=== PATIENT | female | born 1995 | race African-American/Black ===

== ENCOUNTER 2017-01-18 15:36 | Inpatient (IN) ==
[2017-01-18] MEDS ORDERED: LACTATED RINGERS 500 ML IV ONE (15:54)
[2017-01-18] MEDS ORDERED: CITRIC ACID/SODIUM CITRATE 30 ML UDCUP PO ONE (16:32)
[2017-01-18] MEDS ORDERED: ceFAZolin 2,000 MG in PREMIX 1 EACH IV ONE (16:32)
[2017-01-18] MEDS ORDERED: FAMOTIDINE 20 MG/2 ML VIAL IV ONE (16:32)
[2017-01-18 16:45] LABS: Apearance,Urine CLOUDY (Clear); Bacteria,Urine Moderate /HPF (Few); Bilirubin,Urine Negative (Negative); Blood, Urine Large mg/dL (Negative); Glucose,Urine (UA) Negative (Negative); Ketones,Urine Negative (Negative); Nitrite,Urine Negative (Negative); Protein,Urine >=500 MG/DL; RBC,Urine 448 /HPF (0-4); Squamous Epithelial Cell,Urine Occasional /HPF (0-10); Urine Specific Gravity 1.012 (1.001-1.035); Urine Urobilinogen < 2.0 EU/DL (0.2-1.0); WBC,Urine 18 /HPF (0-6)
[2017-01-18 16:46] LABS: Urine Color Yellow (Yellow)
[2017-01-18] MEDS: hydrALAZINE 20 MG/1 ML VIAL IV SCH (16:59)
[2017-01-18 17:00] LABS: Basophils # 0.1 10*3/uL (0.0-0.2); Basophils % 0.6 % (0.0-0.8); Eosinophils # 0.1 10*3/uL (0.0-0.87); Eosinophils % 0.5 % (0.00-10.9); Hematocrit 35.8 VOL% (35.7-47.0); Hemoglobin 12.5 GM/DL (12.0-16.0); Immature Granulocytes % 4.5 %; Immature Granulocytes Absolute 0.42 #; Lymphocytes # 2.9 10*3/uL (1.4-4.0); Lymphocytes % 31.2 % (21.3-54.2); Mean Corpuscular HGB Conc 34.9 GM/DL (32-36); Mean Corpuscular Hemoglobin 27 PG (27-34); Mean Corpuscular Volume 78.5 FL (87-102); Mean Platelet Volume 10.5 FL (9.6-12.0); Monocytes % 10.6 % (1.7-12.7); NRBC # 0.09 10*3/uL; Neutrophils # 4.9 10*3/uL (1.4-7.4); Neutrophils % 52.6 % (38.7-73.9); Platelet Count 186 T/CUMM (130-400); Red Blood Count 4.56 MC/CUMM (3.8-5.5); Red Cell Distribution Width 13.8 % (9.3-17.3); White Blood Count 9.3 T/CUMM (4-12)
[2017-01-18] MEDS ORDERED: BETAMETH SODIUM PHOS/ACETATE 30 MG/5 ML VIAL IM SCH (17:00)
[2017-01-18] MEDS ORDERED: OXYTOCIN/LR 20 UNIT/1,000 ML BAG IV ONE ×3 (17:01→18:50)
[2017-01-18] MEDS: LABETALOL 200 MG TABLET PO SCH ×2 (17:01→21:27)
[2017-01-18] MEDS ORDERED: LACTATED RINGERS 1,000 ML IV ONE (17:04)
[2017-01-18 17:14] LABS: INR 0.9; PT Patient Result 9.1 SECS; Partial Thromboplastin Time 26.6 SECS (0-40)
[2017-01-18 17:29] LABS: Alanine Aminotransferase 16 U/L (13-56); Alkaline Phosphatase 119 U/L (45-117); Aspartate Amino Transferase 26 U/L (0-37); Bilirubin,Total < 0.39 MG/DL (0.2-1.0); Blood Urea Nitrogen 14 MG/DL (7-18); Glucose 82 MG/DL (74-106); Osmolality,Calculated 282.1 MOS/KG (273-304); Potassium 3.4 MMOL/L (3.5-5.1); Sodium 142 MMOL/L (136-145); Total Protein 5.5 G/DL (6.4-8.3); Uric Acid 7.9 MG/DL (2.6-6.0)
--- NOTE | 2017-01-18 17:32 | OB/GYN History & Physical ---
History of Present Illness Chief complaint: 32 weeks severe PIH remote from delivery late decelerations History of present illness: Ms. Hinton is a 21 year old female 1 para 0 seen in the office today. She has a history of A1 gestational diabetes. She had all values out on a 3 hour GTT was placed on insulin but had a adverse reaction to it was constantly placed on diet by the diabetic teaching and had good response with diet control.; However patient has not been checking her blood sugars as recommended and has not followed up with diabetic teaching Patient had an NST today in the office which showed spontaneous decelerations adequate biophysical profile done which showed ADELE of 8. Overall the BPP was reassuring, however the patient his elevated blood pressures of 200/130 there is sustained. She was sent to labor department for evaluation. She continues to have elevated blood pressures and overall has diminished long-term variability with recurrent decelerations. Case was discussed with Dr. Drew and Dr. 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 - Constitutional Vitals: Vital Signs Temp Pulse Resp BP 01/18/17 16:00 98.1 F 63 18 203/117 General appearance: morbidly obese - Head Head exam: Present: normal inspection, normocephalic, atraumatic - Neck Neck exam: Present: normal inspection - Respiratory Respiratory exam: Present: clear to auscultation bilaterally - Breast Breasts: as per HPI Menstruation: as per HPI - Cardiovascular Cardiovascular exam: Present: regular rate and rhythm - GI/Abdominal GI/Abdominal exam: Present: normal bowel sounds - Extremities Exam Extremities exam: Present: normal inspection, normal capillary refill - Back Exam Back exam: Present: normal inspection - Neurological Exam Neurological exam: Present: alert, oriented X3 - Psychiatric Psychiatric exam: Present: normal affect, normal mood - Skin Skin exam: Present: normal color, warm Assessment and Plan (1) with 32 completed weeks gestation Status: Acute Current Visit: Yes (2) PIH ( induced hypertension) Status: Acute Current Visit: Yes (3) heart rate decelerations affecting management of mother Status: Acute Current Visit: Yes (4) Remote from delivery Status: Acute Current Visit: Yes Results - Labs CBC & BMP: 01/18/17 16:57
[2017-01-18 17:56] LABS: Barbiturates Screen,Urine Negative (Negative); Cannabinoid Screen,Urine Negative (Negative); Opiate Screen,Urine Negative (Negative); Phencyclidine Screen,Urine Negative (Negative)
[2017-01-18 17:57] LABS: Benzodiazepines Screen,Urine Negative (Negative)
[2017-01-18] MEDS ORDERED: oxyCODONE/ACETAMINOPHEN 5-325 MG TABLET PO PRN (18:50)
[2017-01-18] MEDS ORDERED: BENZOCAINE 20%/MENTHOL 0.5% SPRAY 56 GM CAN TOP PRN (18:50)
[2017-01-18] MEDS ORDERED: DIPH/TET/ACEL PERT BOOSTER VACCINE 0.5 ML VIAL IM ONE (18:50)
[2017-01-18] MEDS ORDERED: LANOLIN 50% CREAM 0.3 OZ TUBE TOP PRN (18:50)
[2017-01-18] MEDS ORDERED: HYDROCORTISONE 2.5% RECTAL CREAM 30 GM TUBE TOP PRN (18:50)
[2017-01-18] MEDS ORDERED: WITCH HAZEL PADS 100/JAR TOP PRN (18:50)
[2017-01-18] MEDS ORDERED: MEASLES/MUMPS/RUBELLA VACCINE 0.5 ML VIAL SUBCUT ONE (18:50)
[2017-01-18] MEDS ORDERED: IBUPROFEN 800 MG TABLET PO PRN (18:50)
[2017-01-18] MEDS ORDERED: ACETAMINOPHEN 325 MG TABLET PO PRN (18:50)
[2017-01-18] MEDS ORDERED: BISACODYL 10 MG SUPP RECTAL PRN (18:50)
[2017-01-18] MEDS ORDERED: ONDANSETRON 4 MG/2 ML VIAL IV PRN (18:50)
[2017-01-18] MEDS ORDERED: RHO(D) IMMUNE GLOBULIN 300 MCG SYRINGE IM ONE (18:50)
--- NOTE | 2017-01-18 18:50 | Operative Note ---
Date of procedure: 01/18/17 Pre-op diagnosis: 32 weeks recurrent late decelerations severe PIH remote from [facility] Post-op diagnosis: same Procedure: This is Dr. Choi dictating operative note: Preoperative diagnosis intrauterine intrauterine at 32 weeks 2. Severe PIH 3. Recurrent late decelerations 4. Nonreassuring heart rate tracing 5. A1 gestational diabetic 6. Remote from delivery Postoperative diagnosis same Procedure primary low transverse section Surgeon Dr. Choi Anesthesia spinal Findings liveborn female infant unweighed Apgars pending cord pH pending Complications none Estimated blood loss [400] mL Disposition patient to recovery room in [stable] condition. Infant to NICU Operative description: After the risks benefits and alternatives were explained to the patient in detail and informed consent was obtained, the patient was taken to the operating room where she was placed in the supine position. After achieving appropriate anesthesia the abdomen was prepped and draped in the usual sterile fashion. A Nicole catheter was placed without difficulty. After the appropriate time out and after adequate anesthesia was ascertained a Pfannenstiel skin incision was made and carried down through the subcutaneous tissue down to the fascia. The fascia was nicked in the midportion and undermined and incised both laterally and cephalad using sharp dissection with the curved John scissors. 2 Corydon clamps were used to elevate the rectus fascia superiorly which was bluntly and sharply dissected away from the rectus muscle below. This was repeated inferiorly. The rectus muscles were then bluntly in the midline the peritoneum identified grasped with 2 curved hemostats and entered sharply using the curved Metzenbaum scissors. A bladder blade was then placed in the pelvis and a bladder flap was created off the lower uterine segment using sharp dissection with the Metzenbaum scissors. The bladder blade was then repositioned. A transverse incision was made across the lower uterine segment down to the amnion. Entry into the amnion revealed light meconium-stained amniotic fluid. The uterine incision was then extended laterally using bilateral finger fractionation. Upon palpation the presenting part was [vertex] which was gently elevated out of the pelvis and delivered onto the abdominal wall using appropriate fundal pressure. The infant's nose and oropharynx were bulb and DeLee suctioned and the had spontaneous cry delivery. The cord was doubly clamped and cut and the was handed over to the team for care. Cord blood was obtained. The placenta was delivered manually and IV Pitocin antibiotics and Zofran were begun. The uterus was then exteriorized and placed in a wet laparotomy sponge. 2 fingers wrapped around a wet laparotomy sponge were used to remove all residual membranes from the uterine cavity. The uterus was then closed in 2 layers. The first layer of myometrium was closed with #1 Monocryl suture in an inner locking fashion beginning at both angles and overlapping slightly in the midline. The second layer of myometrium was closed with #1 Monocryl suture in a running imbricating stitch beginning at the right angle and continuing the length of the uterine incision. Hemostasis was noted to be excellent. The posterior cul-de-sac was then irrigated and cleansed with a wet laparotomy sponge and the uterus was placed back in the abdominal cavity. Both pericolic gutters were then irrigated and cleansed with a wet lap sponge. The uterine incision was then re-irrigated and again noted to be hemostatic. All counts were noted to be correct. The subcutaneous tissue was then closed using 3-0 Vicryl suture in a running fashion. The subfascial area was made hemostatic using electrocautery and closed with #1 PDS suture in a running fashion beginning at both angles and overlapping slightly in the midline. The subcutaneous tissue was irrigated and made hemostatic using electrocautery and closed with 2-0 Vicryl suture in a running fashion and the skin was closed with wide skin dandre and a sterile pressure bandage was applied to the wound. All sponge needle and instrument counts were correct -3 at the end of the procedure. The patient's urine was [clear] both at the beginning in the end of the procedure. The patient was taken to the recovery room in stable condition Anesthesia: spinal Surgeon / Physician: Barron Choi Estimated blood loss: other (400) Specimens: none sent Condition: stable Disposition: floor Results - Labs CBC & BMP: 01/18/17 16:57 01/18/17 16:57 Discharge Plan - Discharge Medications No Action Ferrous Sulfate 325 mg PO DAILY - Follow Up or Referral - Forms/Instructions
[2017-01-18 19:06] LABS: Apearance,Urine Slightly Hazy (Clear); Bacteria,Urine Occasional /HPF (Few); Bilirubin,Urine Negative (Negative); Blood, Urine Moderate mg/dL (Negative); Glucose,Urine (UA) Negative (Negative); Ketones,Urine Negative (Negative); Nitrite,Urine Negative (Negative); Protein,Urine >=500 MG/DL; RBC,Urine 3 /HPF (0-4); Urine Color Yellow (Yellow); Urine Specific Gravity 1.008 (1.001-1.035); Urine Urobilinogen < 2.0 EU/DL (0.2-1.0); WBC,Urine 2 /HPF (0-6)
[2017-01-18] MEDS ORDERED: fentaNYL 100 MCG/2 ML VIAL ONE (19:06)
[2017-01-18] MEDS ORDERED: MORPHINE 10 MG/10 ML VIAL ONE (19:07)
--- NOTE | 2017-01-18 19:23 | Anesthesia Post-Op ---
Anesthesia Post OP - Post Ansesthetic Evaluation Patient seen in post op: Yes Resp: within normal limits CV: within normal limits Mental: within normal limits Temp: within normal limits [id number]: within normal limits Nausea and Vomiting: within normal limits Pain: within normal limits
[2017-01-18] MEDS ORDERED: MAGNESIUM SULF RIDER 100 ML IV ONE (20:34)
[2017-01-18] MEDS ORDERED: MAGNESIUM SULF DRIP 40 GM/1,000 ML ML IV SCH (21:00)
[2017-01-18] MEDS: DOCUSATE SODIUM 100 MG CAPSULE PO SCH (21:12)
[2017-01-19] MEDS ORDERED: HYDROmorphone 2 MG/1 ML VIAL IV ONE (00:41)
[2017-01-19] MEDS: hydrALAZINE 20 MG/1 ML VIAL IV SCH (00:58)
[2017-01-19] MEDS ORDERED: hydrALAZINE 20 MG/1 ML VIAL IV ONE (00:58)
[2017-01-19] MEDS: CLINDAMYCIN INJ 900 MG in PREMIX 1 EACH IV SCH ×2 (03:30→11:25)
[2017-01-19 03:55] LABS: Basophils % 0.2 % (0.0-0.8); Hematocrit 38.3 VOL% (35.7-47.0); Hemoglobin 13.1 GM/DL (12.0-16.0); Immature Granulocytes % 3.4 %; Immature Granulocytes Absolute 0.57 #; Lymphocytes # 1.3 10*3/uL (1.4-4.0); Lymphocytes % 7.8 % (21.3-54.2); Mean Corpuscular HGB Conc 34.2 GM/DL (32-36); Mean Corpuscular Hemoglobin 27 PG (27-34); Mean Corpuscular Volume 79.6 FL (87-102); Mean Platelet Volume 10.5 FL (9.6-12.0); Monocytes # 0.4 10*3/uL (0.11-0.8); Monocytes % 2.5 % (1.7-12.7); NRBC # 0.07 10*3/uL; Neutrophils # 14.4 10*3/uL (1.4-7.4); Neutrophils % 86.1 % (38.7-73.9); Platelet Count 181 T/CUMM (130-400); Red Blood Count 4.81 MC/CUMM (3.8-5.5); Red Cell Distribution Width 13.8 % (9.3-17.3); White Blood Count 16.7 T/CUMM (4-12)
[2017-01-19 04:22] LABS: Band Neutrophils 3 % (0-10); Lymphocytes 4 % (20-55); Metamyelocytes 1 %; Segmented Neutrophils 91 % (50-85)
[2017-01-19 04:24] LABS: Platelet Estimate Normal; Total Cells Counted 100
--- NOTE | 2017-01-19 07:24 | OB/GYN Progress Note ---
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 Her blood pressures have been somewhat labile on labetalol 200 mg twice a day. Will increase this to 200 mg 3 times a day. 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
[2017-01-19] MEDS ORDERED: ENOXAPARIN 30 MG/0.3 ML SYRINGE SUBCUT SCH (08:00)
[2017-01-19] MEDS: FERROUS SULFATE 325 MG TABLET PO SCH (09:24)
[2017-01-19] MEDS: DOCUSATE SODIUM 100 MG CAPSULE PO SCH ×2 (09:24→20:24)
[2017-01-19] MEDS: LABETALOL 200 MG TABLET PO SCH ×2 (09:25→17:29)
[2017-01-19] MEDS ORDERED: hydrALAZINE 20 MG/1 ML VIAL IV PRN (10:57)
[2017-01-19] MEDS: ENOXAPARIN 40 MG/0.4 ML SYRINGE SUBCUT SCH (11:03)
[2017-01-19] MEDS ORDERED: MAGNESIUM HYDROXIDE SUSP 30 ML UDCUP PO PRN (20:11)
[2017-01-19] MEDS ORDERED: SIMETHICONE CHEW 80 MG TABLET PO PRN (20:16)
[2017-01-19] MEDS ORDERED: ALUMINUM/MAGNES/SIMETH MAX STR 30 ML UDCUP PO PRN (20:37)
[2017-01-20] MEDS: LABETALOL 200 MG TABLET PO SCH ×3 (00:07→21:44)
[2017-01-20] MEDS: oxyCODONE/ACETAMINOPHEN 5-325 MG TABLET PO PRN ×2 (05:19→13:14)
--- NOTE | 2017-01-20 08:46 | OB/GYN Progress Note ---
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 Patient is doing well. She is tolerating her diet and ambulating. She has no complaints. She is afebrile her vital signs are stable Cardiovascular regular rhythm Lungs clear all station Abdomen incision dry and intact with positive bowel sounds. 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
[2017-01-20] MEDS: DOCUSATE SODIUM 100 MG CAPSULE PO SCH ×2 (09:51→21:44)
[2017-01-20] MEDS: ENOXAPARIN 40 MG/0.4 ML SYRINGE SUBCUT SCH (09:51)
[2017-01-20] MEDS: FERROUS SULFATE 325 MG TABLET PO SCH (09:51)
--- NOTE | 2017-01-20 11:27 | Pathology Report from [facility] ---
[facility] ACCESSION # : [id number] PATIENT NAME : Nadir Wagoner ORDERING DR : DARYL LACEY MD CLINICAL HX: IUP @ 32 wks, severe PIH, recurrent late decels, gestational diabetes, nonreassuring FHT POST-OP DX: Same SPECIMEN INFO: Placenta GROSS DESCRIPTION: Received fresh labeled NADIR WAGONER & PLACENTA is a 260 gm placenta measuring 14.7 x 14.1 x 2 cm. The membranes are pink park and translucent. The umbilical cord measures 9.6 cm, contains three vessels and in centrally inserted. The surface is blue pink thorpe with a 1 cm fluid filled cyst present. The maternal surface is beefy red with moderately disrupted cotyledons and clotted blood. Fibrotic areas are present measuring up to 1.5 cm. Sectioning reveals additional fibrotic areas and thrombosis. Sections submitted A- membranes and cord, B- and maternal surfaces. DIAGNOSIS FOR NADIR WAGONER: PLACENTA, MEMBRANES, UMBILICAL CORD: Focal placental infarction with dystrophic calcification, mild intervillous blood, blood and fibrin clots. Tri-vessel umbilical cord. Membranes with focal acute and chronic inflammation and attached blood. COLLECTED DATE: 01/19/2017 [facility] REPORT DATE: 01/20/2017 ELECTRONICALLY SIGNED BY: Stan Dunaway M.D. 01/20/2017 - 9:57:08 JANNETH
[2017-01-21] MEDS: oxyCODONE/ACETAMINOPHEN 5-325 MG TABLET PO PRN ×2 (02:09→10:05)
[2017-01-21] MEDS: LABETALOL 200 MG TABLET PO SCH (05:56)
[2017-01-21 07:14] VITALS: BP 148/86
--- NOTE | 2017-01-21 09:04 | Discharge Summary ---
Hospital Course - Hospital Course Hospital Course: Postoperative the patient did well. Her blood pressures are elevated but they were controlled with as needed Apresoline and finally regulated on labetalol 200 mg p.o. 3 times daily. Diagnosis - Discharge Diagnosis (1) with 32 completed weeks gestation Status: Acute (2) PIH ( induced hypertension) Status: Acute (3) heart rate decelerations affecting management of mother Status: Acute (4) Remote from delivery Status: Acute Discharge Plan - Discharge Data Disposition: Disch To Home/Self Care Discharge Diet: regular diet Activity: increase activity as tolerated, no lifting, other (Pelvic rest) Hygiene: may shower Weight Bearing at Discharge: full weight bearing Driving: not until seen by doctor Contact your physician if you experience:: fever over 101, Difficulty voiding, Redness or swelling, Nausea/Vomiting, Shortness of breath, Bleeding, pain uncontrolled by pain medications - Discharge Medications New oxyCODONE/ACETAMINOPHEN 5-325 [Percocet 5-325] 1 tablet PO Q6H PRN #20 tablet PRN Reason: Pain Severe (8-10) Labetalol Tab [Trandate Tab] 200 mg PO Q8H #90 tablet Discontinued Ferrous Sulfate 325 mg PO DAILY - Follow Up or Referral Follow Up: Barron Choi MD [Primary Care Provider] - 1 Week - Forms/Instructions Exam - Constitutional Vitals: Period Temp Pulse Resp BP Sys/Kay Pulse Ox Last 24 Hr 97.8 F-99.6 F 71-90 16-22 115-158/78-93 97-99 DS: Provider Date of admission: 01/18/17 16:33 Primary care physician: Ana Ortiz Attending physician on admission: Ana Ortiz Consults: 01/18/17 16:32 Consult to Anesthesiology [CONS] Routine Consulting Provider: Reason for Anesthesiology: Pre-op Clearance 01/18/17 18:50 Consult to Preschool Teacher Aide [CONS] Routine Consult Preschool Teacher Aide: Breast Feeding 01/19/17 18:16 Consult to Dietitian [CONS] Routine Reason for Dietitian: Dietary Consult Discharging clinician: Ana Ortiz Expected date of discharge: 01/21/17
[2017-01-21] MEDS: FERROUS SULFATE 325 MG TABLET PO SCH (09:37)
[2017-01-21] MEDS: DOCUSATE SODIUM 100 MG CAPSULE PO SCH (09:37)
[2017-01-21] MEDS: ENOXAPARIN 40 MG/0.4 ML SYRINGE SUBCUT SCH (09:38)
[2017-01-21] MEDS ORDERED: DIPH/TET/ACEL PERT BOOSTER VACCINE 0.5 ML VIAL IM ONE (10:40)
== END 2017-01-21 14:50 | disposition home or self-care (01) | DRG 766 ==
LOC: N.LDOUT 15:36 → N.LD 15:40 → N.OB 01-19 16:06
PROVIDERS: ADMIT Specialist; ATTEND Specialist
PROC: LDCSECT (ICD-10-PCS; 2017-01-18 16:30)

== ENCOUNTER 2022-03-23 15:16 | Inpatient (IN) ==
[2022-03-23] MEDS ORDERED: LABETALOL 100 MG TABLET PO ONE (15:36)
[2022-03-23] MEDS ORDERED: hydrALAZINE 20 MG/1 ML VIAL IV ONE ×3 (15:52→23:30)
[2022-03-23] MEDS: LACTATED RINGERS 1,000 ML IV SCH ×2 (16:00→18:38)
[2022-03-23 16:05] LABS: Basophils # 0.1 10*3/uL (0.0-0.2); Basophils % 0.6 % (0.0-0.8); Eosinophils # 0.1 10*3/uL (0.0-0.87); Eosinophils % 0.7 % (0.00-10.9); Hematocrit 31.5 VOL% (35.7-47.0); Hemoglobin 10.7 GM/DL (12.0-16.0); Immature Granulocytes % 2.8 %; Lymphocytes # 3.8 10*3/uL (1.4-4.0); Lymphocytes % 35.1 % (21.3-54.2); Mean Corpuscular Volume 78.9 FL (87-102); Mean Platelet Volume 10.4 FL (9.6-12.0); Monocytes # 1.1 10*3/uL (0.11-0.8); Monocytes % 10.5 % (1.7-12.7); NRBC # 0.16 10*3/uL; Neutrophils % 50.3 % (38.7-73.9); Platelet Count 185 T/CUMM (130-400); Red Blood Count 3.99 MC/CUMM (3.8-5.5); Red Cell Distribution Width 13.2 % (9.3-17.3); White Blood Count 10.8 T/CUMM (4-12)
[2022-03-23 16:16] LABS: INR 0.8; PT Patient Result 9.4 SECS (10.1-12.1); Partial Thromboplastin Time 27.1 SECS (23.7-32.9)
[2022-03-23 16:35] LABS: Alanine Aminotransferase 18 U/L (13-56); Albumin 2.1 G/DL (3.4-5.0); Alkaline Phosphatase 138 U/L (45-117); Aspartate Amino Transferase 27 U/L (0-37); Bilirubin,Direct < 0.100 MG/DL (0.0-0.20); Bilirubin,Total < 0.39 MG/DL (0.20-1.00); Blood Urea Nitrogen 10 MG/DL (7-18); Calcium 8.3 MG/DL (8.5-10.1); Carbon Dioxide 20 MMOL/L (21-32); Chloride 113 MMOL/L (98-107); Glucose 87 MG/DL (74-106); Osmolality,Calculated 274.5 MOS/KG (273-304); Potassium 3.4 MMOL/L (3.5-5.1); Sodium 139 MMOL/L (136-145); Total Protein 6.1 G/DL (6.4-8.2); Uric Acid 6.3 MG/DL (2.6-6.0)
[2022-03-23] MEDS ORDERED: MAGNESIUM SULF RIDER 4 GM/100 ML PREMIX IV ONE (16:54)
[2022-03-23] MEDS ORDERED: MAGNESIUM SULF DRIP 40 GM/1,000 ML ML IV SCH (17:00)
[2022-03-23] MEDS: BETAMETH SODIUM PHOS/ACETATE 30 MG/5 ML VIAL IM SCH (17:16)
[2022-03-23] MEDS ORDERED: DEXTROSE 10% 250 ML BAG IV PRN (17:52)
[2022-03-23] MEDS ORDERED: GLUCAGON 1 MG VIAL IM PRN (17:52)
[2022-03-23] MEDS ORDERED: CARBOPROST TROMETHAMINE 250 MCG/ML AMP IM PRN (18:42)
[2022-03-23] MEDS ORDERED: METHYLERGONOVINE 0.2 MG/1 ML AMP IM PRN (18:43)
[2022-03-23] MEDS ORDERED: miSOPROStoL 200 MCG TABLET RECTAL PRN (18:43)
[2022-03-23] MEDS ORDERED: FAMOTIDINE 20 MG/2 ML VIAL IV ONE ×2 (18:43→19:00)
[2022-03-23] MEDS ORDERED: TRANEXAMIC ACID 1,000 MG in SODIUM CHLORIDE 0.9% 100 ML IV PRN (18:44)
[2022-03-23] MEDS ORDERED: TRANEXAMIC ACID 1,000 MG/10 ML VIAL ONE (18:46)
[2022-03-23] MEDS ORDERED: miSOPROStoL 200 MCG TABLET ONE (18:46)
[2022-03-23] MEDS ORDERED: CARBOPROST TROMETHAMINE 250 MCG/ML AMP IM ONE (18:47)
[2022-03-23] MEDS ORDERED: METHYLERGONOVINE 0.2 MG/1 ML AMP ONE (18:47)
[2022-03-23] MEDS ORDERED: SODIUM CHLORIDE 0.9% 0 ML IV ONE (18:47)
[2022-03-23] MEDS ORDERED: OXYTOCIN/LR 20 UNIT/1,000 ML BAG IV ONE ×3 (18:47→19:45)
[2022-03-23] MEDS ORDERED: LIDOCAINE 2% 5 ML VIAL ONE (18:53)
[2022-03-23] MEDS ORDERED: SUCCINYLCHOLINE 200 MG/10 ML VIAL ONE (18:53)
[2022-03-23] MEDS ORDERED: propofoL 200 MG/20 ML VIAL IV ONE ×2 (18:53→19:32)
[2022-03-23] MEDS ORDERED: ROCURONIUM 50 MG/5 ML VIAL IV ONE (18:53)
[2022-03-23] MEDS ORDERED: CLINDAMYCIN INJ 900 MG/50 ML PREMIX IV ONE (19:00)
[2022-03-23] MEDS ORDERED: CITRIC ACID/SODIUM CITRATE 30 ML UDCUP PO ONE (19:00)
[2022-03-23] MEDS ORDERED: fentaNYL 100 MCG/2 ML VIAL ONE ×3 (19:04→19:42)
[2022-03-23] MEDS ORDERED: MIDAZOLAM 2 MG/2 ML VIAL ONE (19:05)
[2022-03-23] MEDS ORDERED: ACETAMINOPHEN INJ 1,000 MG/100 ML VIAL IV ONE (19:06)
[2022-03-23] MEDS ORDERED: HYDROmorphone 1 MG/1 ML SYRINGE ONE (19:16)
[2022-03-23 19:23] LABS: Cord Arterial Blood HCO3 18.6 MMOL/L
[2022-03-23 19:26] LABS: Cord Venous Blood PO2 27.9
[2022-03-23] MEDS ORDERED: SUGAMMADEX 200 MG/2 ML VIAL IV ONE (19:27)
[2022-03-23] MEDS ORDERED: KETOROLAC 30 MG/1 ML VIAL ONE (19:35)
[2022-03-23] MEDS ORDERED: MEASLES/MUMPS/RUBELLA VACCINE 0.5 ML VIAL SUBCUT ONE (19:45)
[2022-03-23] MEDS ORDERED: BISACODYL 10 MG SUPP RECTAL PRN (19:45)
[2022-03-23] MEDS ORDERED: WITCH HAZEL PADS 100/JAR TOP PRN (19:45)
[2022-03-23] MEDS ORDERED: LANOLIN 50% CREAM 0.3 OZ TUBE TOP PRN (19:45)
[2022-03-23] MEDS ORDERED: BENZOCAINE 20%/MENTHOL 0.5% SPRAY 56 GM CAN TOP PRN (19:45)
[2022-03-23] MEDS ORDERED: oxyCODONE/ACETAMINOPHEN 5-325 MG TABLET PO PRN (19:45)
[2022-03-23] MEDS ORDERED: HYDROCORTISONE 2.5% RECTAL CREAM 30 GM TUBE TOP PRN (19:45)
[2022-03-23] MEDS ORDERED: DIPH/TET/ACEL PERT BOOSTER VACCINE 0.5 ML VIAL IM ONE (19:45)
[2022-03-23] MEDS ORDERED: ACETAMINOPHEN 325 MG TABLET PO PRN (19:45)
[2022-03-23] MEDS ORDERED: RHO(D) IMMUNE GLOBULIN 300 MCG SYRINGE IM ONE (19:45)
[2022-03-23] MEDS ORDERED: ONDANSETRON 4 MG/2 ML VIAL IV PRN (19:45)
[2022-03-23 20:34] LABS: Bacteria,Urine Occasional /HPF (Few); Hyaline Casts,Urine 10 /LPF (0-3); Mucus,Urine Occasional /LPF (Occasional); RBC,Urine 1 /HPF (0-4)
[2022-03-23 20:35] LABS: Bilirubin,Urine Negative (Negative); Blood, Urine Moderate mg/dL (Negative); Glucose,Urine (UA) Negative (Negative); Ketones,Urine Negative (Negative); Nitrite,Urine Negative (Negative); Protein,Urine >=300 mg/dL (Negative); Urine Appearance Clear (Clear); Urine Color Yellow (Yellow); Urine Specific Gravity 1.015 (1.001-1.035); Urine Urobilinogen 0.2 eU/dL (<2.0)
[2022-03-23] MEDS ORDERED: HYDROmorphone 1 MG/1 ML SYRINGE IV PRN (21:00)
[2022-03-23] MEDS: LABETALOL 200 MG TABLET PO SCH (21:26)
[2022-03-23] MEDS: INSULIN REGULAR 100 UNIT/ML SUBCUT SCH (21:41)
[2022-03-23] MEDS: DOCUSATE SODIUM 100 MG CAPSULE PO SCH (21:48)
[2022-03-23 22:04] LABS: Protein/Creatinine Ratio,Urine 14.6 RATIO
[2022-03-24] MEDS: CLINDAMYCIN INJ 900 MG/50 ML PREMIX IV SCH ×2 (03:39→11:28)
[2022-03-24] MEDS: KETOROLAC 30 MG/1 ML VIAL IV SCH ×3 (03:42→21:32)
[2022-03-24] MEDS: ACETAMINOPHEN 500 MG TABLET PO SCH ×2 (03:45→11:32)
[2022-03-24] MEDS: BETAMETH SODIUM PHOS/ACETATE 30 MG/5 ML VIAL IM SCH (05:06)
[2022-03-24 05:08] LABS: Basophils # 0.1 10*3/uL (0.0-0.2); Basophils % 0.3 % (0.0-0.8); Hematocrit 32.2 VOL% (35.7-47.0); Hemoglobin 10.5 GM/DL (12.0-16.0); Immature Granulocytes % 3.5 %; Immature Granulocytes Absolute 0.55 #; Lymphocytes # 1.8 10*3/uL (1.4-4.0); Lymphocytes % 11.6 % (21.3-54.2); Mean Corpuscular HGB Conc 32.6 GM/DL (32-36); Mean Corpuscular Volume 80.9 FL (87-102); Mean Platelet Volume 10.7 FL (9.6-12.0); Monocytes # 0.5 10*3/uL (0.11-0.8); NRBC # 0.12 10*3/uL; Neutrophils % 81.6 % (38.7-73.9); Platelet Count 180 T/CUMM (130-400); Red Blood Count 3.98 MC/CUMM (3.8-5.5); Red Cell Distribution Width 13.7 % (9.3-17.3); White Blood Count 15.9 T/CUMM (4-12)
[2022-03-24] MEDS: LABETALOL 200 MG TABLET PO SCH ×3 (05:24→21:31)
[2022-03-24 05:27] LABS: Band Neutrophils 2 % (0-10); Lymphocytes 9 % (20-55); Platelet Estimate Adequate; Total Cells Counted 100
[2022-03-24] MEDS ORDERED: CITRIC ACID/SODIUM CITRATE 30 ML UDCUP PO ONE (06:45)
[2022-03-24] MEDS ORDERED: CARBOPROST TROMETHAMINE 250 MCG/ML AMP IM PRN (06:45)
[2022-03-24] MEDS: LACTATED RINGERS 1,000 ML IV SCH (07:22)
[2022-03-24] MEDS: INSULIN REGULAR 100 UNIT/ML SUBCUT SCH ×4 (09:26→21:53)
[2022-03-24] MEDS: DOCUSATE SODIUM 100 MG CAPSULE PO SCH ×2 (11:33→21:31)
[2022-03-24] MEDS: oxyCODONE/ACETAMINOPHEN 5-325 MG TABLET PO PRN (16:48)
[2022-03-25] MEDS: LABETALOL 200 MG TABLET PO SCH ×3 (05:10→22:26)
[2022-03-25] MEDS: oxyCODONE/ACETAMINOPHEN 5-325 MG TABLET PO PRN ×2 (05:11→16:03)
[2022-03-25] MEDS: INSULIN REGULAR 100 UNIT/ML SUBCUT SCH ×4 (09:18→22:25)
[2022-03-25] MEDS: DOCUSATE SODIUM 100 MG CAPSULE PO SCH ×2 (09:57→22:24)
[2022-03-25] MEDS: IBUPROFEN 800 MG TABLET PO PRN (10:03)
[2022-03-25] MEDS ORDERED: MAGNESIUM HYDROXIDE SUSP 30 ML UDCUP PO PRN (21:25)
[2022-03-26] MEDS: oxyCODONE/ACETAMINOPHEN 5-325 MG TABLET PO PRN ×2 (04:28→12:12)
[2022-03-26] MEDS: IBUPROFEN 800 MG TABLET PO PRN ×2 (04:30→12:11)
[2022-03-26] MEDS: LABETALOL 200 MG TABLET PO SCH (07:00)
[2022-03-26] MEDS: INSULIN REGULAR 100 UNIT/ML SUBCUT SCH (07:29)
[2022-03-26] MEDS: DOCUSATE SODIUM 100 MG CAPSULE PO SCH (09:16)
[2022-03-26 09:46] VITALS: BP 158/77
[2022-03-26] MEDS ORDERED: DIPH/TET/ACEL PERT BOOSTER VACCINE 0.5 ML VIAL IM ONE (12:37)
== END 2022-03-26 13:30 | disposition home or self-care (01) | DRG 788 ==
LOC: N.LDOUT 15:16 → N.LD 15:24 → N.OB 03-24 11:04
PROVIDERS: ADMIT Specialist; ATTEND Specialist
PROC: LDCSECT (ICD-10-PCS; 2022-03-23 18:30)